=== PATIENT | female | born 1965 | race Caucasian/White ===

== ENCOUNTER 2021-04-23 18:43 | Observation (INO) | payer OTHER, SELFPAY ==
[~2021-04-23] VITALS: Ht 162.6 cm; Wt 64.9 kg
[2021-04-23 18:50] VITALS: BP 148/90
--- NOTE | 2021-04-23 18:55 | NUR ---
PT BROUGHT TO ER BED 6 VIA WHEELCHAIR. ACCOMPANIED BY .
--- NOTE | 2021-04-23 19:00 | NUR ---
55 Y/O F C/O DIZZINESS STARTED TODAY. STATES FEELS LIKE ROOM IS SPINNING. HX VERTIGO. WORST EPISODE TODAY. NAUSEA/VOMITING AT THIS TIME. DENIES DIARRHEA/CONSTIPATION; SKIN IS PINK/WARM/DRY; AAOX4 WITH UNSTEADY GAIT; LUNGS CLEAR BL; HR EVEN AND REGULAR; PT DENIES ANY FEVER, CP, SOB, OR COUGH AT THIS TIME; PATIENT STATES PAIN OF 0/10 AT THIS TIME; VSS; PATIENT POSITIONED FOR COMFORT; HOB ELEVATED; BEDRAILS UP X2; BED DOWN. ER MD MADE AWARE OF PT STATUS. MEDHX:VERTIGO NKA
--- NOTE | 2021-04-23 19:00 | NUR ---
SEEN AND EXAMINED BY DR LONG.
[2021-04-23] MEDS ORDERED: NACL 0.9% 500 ML IV ONE (19:05)
[2021-04-23] MEDS ORDERED: PROCHLORPERAZINE 10 MG/2 ML VIAL IVP ONE (19:05)
--- NOTE | 2021-04-23 19:15 | NUR ---
INITIATED 20 G IV TO L FA AND OBTAINED ORDERED LABS.
--- NOTE | 2021-04-23 19:24 | NUR ---
ENDORSED BEDSIDE REPORT TO MAY AND MYRA NIGHT RNS FOR CONTINUITY OF CARE.
[2021-04-23 19:41] LABS: BASOPHILS # (AUTO) 0.1 K/uL (0.00-0.22); BASOPHILS % (AUTO) 1.2 % (0.0-2.0); EOSINOPHILS # (AUTO) 0.1 K/uL (0-0.4); EOSINOPHILS % (AUTO) 1.5 % (0.0-4.0); HEMATOCRIT 40.4 % (36-48); HEMOGLOBIN 13.5 g/dL (12.0-16.0); LYMPHOCYTES # (AUTO) 3.6 K/uL (2.5-16.5); MEAN CORPUSCULAR HEMOGLOBIN 29 pg (27-31); MEAN CORPUSCULAR HGB CONC 33 g/dL (33-37); MONOCYTES # (AUTO) 0.6 K/uL (0.8-1.0); MONOCYTES % (AUTO) 7.2 % (1.7-9.3); NEUTROPHILS # (AUTO) 3.4 K/uL (1.8-7.7); NEUTROPHILS % (AUTO) 43.1 % (42.2-75.2); PLATELET COUNT (AUTO) 227 K/uL (140-450); RED BLOOD CELL COUNT(AUTO) 4.65 MIL/uL (4.20-5.40); RED CELL DISTRIBUTION WIDTH 14.4 % (11.6-13.7); WHITE BLOOD COUNT (AUTO) 7.8 K/uL (4.8-10.8)
[2021-04-23 19:54] LABS: ALBUMIN 3.7 g/dL (3.4-5.0); ANION GAP 15.9 (8-16); CARBON DIOXIDE 24.4 mmol/L (21-32); CREATININE 0.7 mg/dL (0.6-1.3); POTASSIUM 3.3 mmol/L (3.5-5.1); TOTAL BILIRUBIN 0.2 mg/dL (0.0-1.0)
--- NOTE | 2021-04-23 20:19 | NUR ---
Re-check patient after medicated, patient reported, dizziness and state "the room still spinning". and provided blankets as request.
--- NOTE | 2021-04-23 21:00 | NUR ---
Patient reported, "still spinning and dizziness",. Dr. Dotson notified.
[2021-04-23] MEDS ORDERED: diazePAM 5 MG TAB PO ONE (21:15)
[2021-04-23] MEDS ORDERED: diphenhydrAMINE 50 MG CAP PO ONE (21:15)
--- NOTE | 2021-04-23 22:02 | NUR ---
Dr. Dotson at bedside and explain treatment plans to patient and family.
--- NOTE | 2021-04-23 22:15 | NUR ---
Covid-19 (rapid) swabs collected and sent to lab
--- NOTE | 2021-04-23 22:42 | NUR ---
Patient returned from CT scan via gurney with seal delivery vehicle team technician.
--- NOTE | 2021-04-23 23:32 | NUR ---
Spoke with patient's family and update patient's status.
[2021-04-24] MEDS ORDERED: NACL 0.9% 1,000 ML IV ONE (00:15)
[2021-04-24] MEDS ORDERED: PROCHLORPERAZINE 10 MG/2 ML VIAL IVP ONE (00:15)
--- NOTE | 2021-04-24 00:18 | NUR ---
Assisted patient to restroom, patient reported, no spinning, slightly dizziness.
--- NOTE | 2021-04-24 00:35 | NUR ---
Darien yanez in ED - 04/24/21 at 0050 by FRANNY D/C IV LAC and started IV right wrist 22 G by Laurence RN
--- NOTE | 2021-04-24 00:35 | NUR ---
D/C IV LAC and started IV right wrist 22 G by ELYSE Sanchez
--- NOTE | 2021-04-24 01:24 | NUR ---
BOLUS COMPLETE. PT UP FOR ROADTEST. PT AMBULATES UNASSISTED BUT STILL UNSTEADY ON HER FEET. PT REPORTS FEELING "A BIT BETTER, NOT DIZZY BEFORE". DR. SMITH NOTIFIED.
--- NOTE | 2021-04-24 02:19 | NUR ---
Patient appears to be resting comfortably in bed. Vital Signs within normal limits. Respirations even and unlabored.
--- NOTE | 2021-04-24 04:22 | NUR ---
Patient appears to be resting comfortably in bed. Vital Signs within normal limits. Respirations even and unlabored.
--- NOTE | 2021-04-24 04:28 | NUR ---
Called patient's family () to update patient's status.
--- NOTE | 2021-04-24 04:39 | NUR ---
Patient will be admitted to care of Dr. Snow. Admited to M/S. Will go to room 104A. Belongings list completed. Report to ELYSE Leach.
--- NOTE | 2021-04-24 04:39 | NUR ---
Note beau in EDM - 04/24/21 at 0441 by NISA Patient will be admitted to care of Dr. Snow. Admited to M/S. Will go to room 104A. Belongings list completed. Report to ELYSE Leach.
--- NOTE | 2021-04-24 04:55 | NUR ---
PATIENT WAS BROUGHT TO TELEMETRY UNIT VIA WHEELCHAIR FROM ER WITH THE CC: OF DIZZINESS, N/V ON 04/23/21. AAOX4. NO SOB NOTED. BREATHING EVEN UNLABORED. ON ROOM AIR. SKIN IS INTACT NO WOUND. SAFETY MEASURES IN PLACE. ORIENTED TO CALL LIGHT, RESTROOM, STAFF. MRSA SCREENING DONE, SENT TO LAB. PAGED DR. EDMONDSON REGARDING DIET, AWAITING FOR ORDERS. WILL ENDORSE TO THE NEXT SHIFT.
--- NOTE | 2021-04-24 06:58 | NUR ---
V/S: 150/81 , 82, 18, 98.7, 97% RA.
--- NOTE | 2021-04-24 07:01 | NUR ---
PATIENT HAS BEEN SCREENED AND CATEGORIZED MODERATE NUTRITION RISK. PATIENT WILL BE SEEN WITHIN 3-5 DAYS OF ADMISSION. 04/24/21-04/28/[address]
--- NOTE | 2021-04-24 07:15 | NUR ---
ENDORSED PATIENT TO AM NURSE FOR CONTINUITY OF CARE. PT IS OBSERVATION.
--- NOTE | 2021-04-24 07:16 | NUR ---
RECEIVED REPORT FROM INDUSTRIAL CHEMISTRY TEACHER NURSE FOR CONTINUITY OF CARE. PT IN BED RESTING AT THIS TIME. RESPIRATIONS ARE EVEN AND UNLABORED ON ROOM AIR. NO SIGNS OF DISTRESS NOTED. NO SOB NOTED. PT IS ALERT AND ORIENTED X4. ABLE TO VERBALIZE NEEDS TO STAFF. SKIN IS WARM, DRY, AND INTACT NO WOUNDS NOTED. ALL SAFETY MEASURES IN PLACE. CALL LIGHT WITHIN REACH. WILL CONTINUE TO MONITOR.
[2021-04-24 08:00] VITALS: BP 118/65
--- NOTE | 2021-04-24 08:00 | NUR ---
Patient's Plan of Care was discussed and reviewed with BESSEMER CONVERTER OPERATOR: GARIMA MERAZ
[2021-04-24] MEDS ORDERED: ONDANSETRON 4 MG/2 ML VIAL IVP PRN ×2 (08:25→08:30)
[2021-04-24] MEDS ORDERED: NACL 0.9% 1,000 ML IV SCH (08:30)
--- NOTE | 2021-04-24 08:45 | NUR ---
AT BEDSIDE SPEAKING WITH PT. PT STARTED ON IVF. PER , OK TO START PT ON REGULAR DIET. WILL CONTINUE TO MONITOR.
[2021-04-24] MEDS ORDERED: MECLIZINE 25 MG TAB PO PRN (08:50)
[2021-04-24] MEDS ORDERED: MECL-303 PO (08:55)
[2021-04-24 10:07] VITALS: BP 118/65
--- NOTE | 2021-04-24 10:45 | NUR ---
DID ROUNDS ON PT. PT STATES SHE WAS ABLE TO EAT SOME BREAKFAST. TOLERATED WELL. INFORMED PT THAT THERE IS DISCHARGE ORDER. PT STATES SHE IS HAPPY TO BE GOING HOME. STATES IF IT IS OK IF SHE LEAVES IN 1 HOUR. WILL INFORMED WILL CONTINUE TO MONITOR.
--- NOTE | 2021-04-24 12:30 | NUR ---
WENT OVER DISCHARGE PAPERWORK WITH PT. ANSWERED ALL QUESTIONS. PT SIGNED ALL PAPERWORK. REMOVED IV. IV CATHETER INTACT. REMOVED WRIST BAND. PT DISCHARGED HOME WITH . ALL BELONGINGS TAKEN UPON DISCHARGE.
== END 2021-04-24 13:12 | disposition home or self-care (01) ==
LOC: MED 18:43 → MTU 04-24 04:18
PROVIDERS: ADMIT Student in an Organized Health Care Education/Training Program; ATTEND Student in an Organized Health Care Education/Training Program
DX: H81.399 Other peripheral vertigo, unspecified ear (principal); Z20.822 Contact with and (suspected) exposure to COVID-19; R11.2 Nausea with vomiting, unspecified; E86.1 Hypovolemia; E87.6 Hypokalemia; Z79.899 Other long term (current) drug therapy
CPT/HCPCS: 36415; 70450; 80053; 85025; 87081; 87426; 93005; 96361; 96374; 96376; 99285; G0378; J0780; Q0163